=== PATIENT | female | born 1995 | race Caucasian/White ===

== ENCOUNTER 2018-01-24 01:59 | Emergency (ER) | payer BC ==
[2018-01-24 04:20] LABS: URINE PH (Dip) POC 5.5 (5.0-8.5)
[2018-01-24 04:20] LABS: URINE BLOOD (Dip) POC Negative (NEGATIVE); URINE GLUCOSE (Dip) POC Negative (NEGATIVE); URINE KETONES (Dip) POC Negative (NEGATIVE); URINE LEUKOCYTE EST (Dip) POC Trace (NEGATIVE); URINE NITRITE (Dip) POC Negative (NEGATIVE); URINE TOTAL PROTEIN POC Negative (NEGATIVE)
[2018-01-24] MEDS: KETOROLAC 30 MG INJ IM (05:32)
== END 2018-01-24 05:45 | disposition home or self-care (01) ==
LOC: E/R 01:59
DX: M54.9 Dorsalgia, unspecified (principal)
CPT/HCPCS: 81003; 81025; 96372; 99284-25

== ENCOUNTER 2019-01-14 13:10 | Emergency (ER) | payer BC ==
[2019-01-14] MEDS: predniSONE 20 MG TAB PO (15:22)
== END 2019-01-14 15:42 | disposition home or self-care (01) ==
LOC: FTE 13:10
DX: L50.9 Urticaria, unspecified (principal)
CPT/HCPCS: 99283; J7512